=== PATIENT | female | born 1965 | race African-American/Black ===

== ENCOUNTER 2021-03-16 11:16 | Inpatient (IN) | payer OTHER ==
[2021-03-16] MEDS ORDERED: Lidocaine 2% PF 100 mg/5 ml Syringe ONE (12:01)
[2021-03-16] MEDS ORDERED: EPINEPHrine 1 MG/10 ML Abboject SYRINGE ONE (12:01)
[2021-03-16] MEDS ORDERED: Atropine Sulfate 1 mg/10 ml Syringe ONE (12:01)
[2021-03-16] MEDS ORDERED: Dextrose 50% Abboject 50 ML SYRINGE ONE (12:01)
[2021-03-16] MEDS ORDERED: Calcium Chloride 1 GM/10 ML Abboject SYRINGE ONE ×2 (12:01→15:58)
[2021-03-16] MEDS ORDERED: Amiodarone 150 MG/3 ML VIAL ONE (12:01)
[2021-03-16 15:10] LABS: #Monocytes 0.5 10x3/uL (0.0-1.1); #Neutrophils 2.9 10x3/uL (1.5-8.4); %Basophils 0.9 % (0.0-2.0); %Eosinophils 0.2 % (0.0-6.0); %Lymphocytes 20.1 % (18.0-47.0); %Monocytes 10.4 % (0.0-10.0); %Neutrophils 67.9 % (40.0-75.0); Hemoglobin 9.5 g/dL (12.0-15.5); Mean Corpuscular HGB CONC 28.9 g/dL (32.0-36.0); Mean Corpuscular Hemoglobin 23.9 pg (27.0-33.0); Mean Corpuscular Volume 82.7 fl (81.6-98.3); Mean Platelet Volume 9.6 fl (7.4-10.4); Platelet Count 184 10x3/uL (150-450); RBC Distribution Width 19.5 % (11.5-14.5); Red Blood Cell (RBC) Count 3.98 10x6/uL (3.90-5.03); White Blood Cell (WBC) Count 4.3 10x3/uL (3.5-10.5)
[2021-03-16 15:22] LABS: ALT (SGPT) Less than 6 U/L (8-55); AST (SGOT) 14 U/L (5-34); Albumin 3.2 g/dL (3.5-5.0); Alkaline Phosphatase 216 U/L (40-110); Anion Gap 37 mmol/L (10-20); BUN (Urea Nitrogen) 95 mg/dL (9.8-20.1); Bilirubin, Total 0.4 mg/dL (0.2-1.2); Calc. Creatinine Clearance 0 mL/min (70-130); Carbon Dioxide 15 mmol/L (22-29); Chloride 92 mmol/L (98-107); Globulin 5.8 g/dL (2.4-3.5); Glucose 62 mg/dL (70-105); Sodium 135 mmol/L (136-145)
[2021-03-16 15:42] LABS: Anisocytosis MODERATE=16-30 cells (100X) (0-5/hpf); Hypochromia SLIGHT = 6-15 cells (100X) (0-5/hpf); Platelet Morphology Comment Appears Adequate
[2021-03-16] MEDS ORDERED: Albuterol Sulfate 2.5 mg/3 ml Neb ONE (15:58)
[2021-03-16] MEDS ORDERED: Sodium Bicarb 50 MEQ/50 ML Abboject 8.4% SYRINGE ONE (15:59)
[2021-03-16] MEDS ORDERED: Acetaminophen 325 MG TAB PO PRN (17:13)
[2021-03-16] MEDS ORDERED: HYDROcodone/Acetaminophen 5/325 mg Tablet PO PRN (17:13)
[2021-03-16] MEDS ORDERED: Guaifenesin DM 100-10/5 ML UDCUP PO PRN (17:13)
[2021-03-16] MEDS ORDERED: Bisacodyl 5 MG TAB PO PRN (17:13)
[2021-03-16] MEDS ORDERED: Ondansetron PF 4 MG/2 ML Vial IVP PRN (17:13)
[2021-03-16 18:24] LABS: Acetaminophen Less than 6.0 mcg/mL (10.0-30.0); Alcohol Less than 10 mg/dL (Less than 10); Salicylate Less than 8.0 mg/dL (15.0-30.0)
[2021-03-16 18:33] LABS: SARS-CoV-2 NAA Rapid Test Not Detected (NotDetected)
[2021-03-16] MEDS ORDERED: Albumin 25% 25 GM/100 ML BOT IVPB SCH (21:00)
[2021-03-16 22:58] LABS: Anion Gap 19 mmol/L (10-20); BUN (Urea Nitrogen) 19 mg/dL (9.8-20.1); Calc. Creatinine Clearance 0 mL/min (70-130); Calcium 9.6 mg/dL (7.8-10.44); Carbon Dioxide 24 mmol/L (22-29); Chloride 100 mmol/L (98-107); Glucose 69 mg/dL (70-105); Potassium 3.4 mmol/L (3.5-5.1); Sodium 140 mmol/L (136-145)
[2021-03-16 23:40] VITALS: BMI 17.6
[2021-03-17] MEDS ORDERED: Albumin 25% 25 GM/100 ML BOT IVPB SCH (00:15)
[2021-03-17] MEDS ORDERED: Dextrose 50% Abboject 50 ML SYRINGE SLOW IVP SCH (00:15)
[2021-03-17 05:17] LABS: #Monocytes 0.6 10x3/uL (0.0-1.1); #Neutrophils 4.1 10x3/uL (1.5-8.4); %Basophils 0.4 % (0.0-2.0); %Eosinophils 0.2 % (0.0-6.0); %Lymphocytes 16.5 % (18.0-47.0); %Monocytes 10.2 % (0.0-10.0); %Neutrophils 72.2 % (40.0-75.0); Hemoglobin 8.7 g/dL (12.0-15.5); Mean Corpuscular HGB CONC 28.8 g/dL (32.0-36.0); Mean Corpuscular Hemoglobin 23.8 pg (27.0-33.0); Mean Corpuscular Volume 82.5 fl (81.6-98.3); Mean Platelet Volume 10.2 fl (7.4-10.4); Platelet Count 160 10x3/uL (150-450); RBC Distribution Width 19.4 % (11.5-14.5); Red Blood Cell (RBC) Count 3.66 10x6/uL (3.90-5.03); White Blood Cell (WBC) Count 5.7 10x3/uL (3.5-10.5)
[2021-03-17 05:41] LABS: Anion Gap 29 mmol/L (10-20); BUN (Urea Nitrogen) 24 mg/dL (9.8-20.1); Calc. Creatinine Clearance 8 mL/min (70-130); Calcium 11.8 mg/dL (7.8-10.44); Carbon Dioxide 18 mmol/L (22-29); Chloride 97 mmol/L (98-107); Glucose 87 mg/dL (70-105); Potassium 5.1 mmol/L (3.5-5.1); Sodium 139 mmol/L (136-145)
[2021-03-17 07:08] LABS: CKMB 8.2 ng/mL (0-6.6)
[2021-03-17] MEDS ORDERED: Aspirin 81 mg Enteric Coated Tablet PO SCH (09:00)
[2021-03-17] MEDS ORDERED: Enoxaparin Sodium 30 MG/0.3 ML SYRINGE SC SCH (09:00)
[2021-03-17] MEDS ORDERED: Dextrose 5% in Water 1,000 ML IV PRN (11:45)
[2021-03-17] MEDS: Dextrose 50% Abboject 50 ML SYRINGE SLOW IVP PRN ×3 (11:46→13:58)
[2021-03-17] MEDS ORDERED: Dextrose 5 %-0.45 % NaCl 1,000 ML IV SCH (12:00)
[2021-03-17 13:39] VITALS: BP 96/66; TEMP 97.7
[2021-03-17 14:20] LABS: CKMB 15.6 ng/mL (0-6.6)
[2021-03-17 14:24] LABS: Actual Bicarbonate (HCO3a) 11.8 mEq/L (22-28); Base Excess (BEa) -18.4 mEq/L (-2.0 to +3.0); CO2 Tension 49.2 mmHg (35.0-45.0); Calcium, Ionized (arterial) 1.33 mmol/L (1.12-1.30); Carboxyhemoglobin (COHb) 0.2 gm% (0.0-3.0); Hemoglobin (Hb) 7.8 g/dL (12.0-16.0); O2 Tension (PaO2), arterial 26.1 mmHg (80.0-100.0); Potassium - ABG Lab 5.6 mmol/L (3.70-5.30); Puncture Site Other Site
[2021-03-17] MEDS ORDERED: Pantoprazole 40 MG VIAL IVP SCH ×2 (14:30→21:00)
[2021-03-17] MEDS ORDERED: Amiodarone 450 MG in Dextrose 5% in Water 250 ML IVPB SCH (14:30)
[2021-03-17] MEDS ORDERED: Amiodarone 150 MG in Dextrose 5% in Water 100 ML IVPB SCH (14:30)
[2021-03-17] MEDS ORDERED: Vasopressin 20 UNIT, Admixture Fee 1 EACH in Sodium Chloride 0.9% 50 ML IV SCH (14:30)
[2021-03-17 14:31] LABS: ALV-art Gradient 228.275 mmHg (0-20); Actual Bicarbonate (HCO3a) 11.6 mEq/L (22-28); Base Excess (BEa) -19.4 mEq/L (-2.0 to +3.0); CO2 Tension 53.7 mmHg (35.0-45.0); Calcium, Ionized (arterial) 1.62 mmol/L (1.12-1.30); Carboxyhemoglobin (COHb) 1.3 gm% (0.0-3.0); Hemoglobin (Hb) 8.3 g/dL (12.0-16.0); O2 Tension (PaO2), arterial 417.6 mmHg (80.0-100.0); Potassium - ABG Lab 5.2 mmol/L (3.70-5.30); Puncture Site Other Site; pH, Arterial 6.95 (7.35-7.45)
[2021-03-17] MEDS ORDERED: Amiodarone In Dextrose 360 MG in Premix Bag 1 BAG IVPB SCH (14:45)
[2021-03-17] MEDS ORDERED: Sodium Bicarbonate 150 MEQ in Dextrose 5% in Water 1,000 ML IV SCH (14:45)
[2021-03-17 14:54] LABS: #Monocytes 0.5 10x3/uL (0.0-1.1); #Neutrophils 6.8 10x3/uL (1.5-8.4); %Basophils 0.1 % (0.0-2.0); %Lymphocytes 12.6 % (18.0-47.0); %Monocytes 6.1 % (0.0-10.0); %Neutrophils 79.8 % (40.0-75.0); Hemoglobin 5.6 g/dL (12.0-15.5); Mean Corpuscular HGB CONC 21.1 g/dL (32.0-36.0); Mean Corpuscular Hemoglobin 23.8 pg (27.0-33.0); Mean Corpuscular Volume 112.8 fl (81.6-98.3); Mean Platelet Volume 11.9 fl (7.4-10.4); Platelet Count 43 10x3/uL (150-450); RBC Distribution Width 21.8 % (11.5-14.5); Red Blood Cell (RBC) Count 2.35 10x6/uL (3.90-5.03); White Blood Cell (WBC) Count 8.5 10x3/uL (3.5-10.5)
[2021-03-17 15:03] LABS: Magnesium 1.7 mg/dL (1.6-2.6)
[2021-03-17 16:05] LABS: Platelet Morphology Comment Appears Decreased
[2021-03-17 16:06] LABS: Tear Drops SLIGHT = 2-5 cells (100X) (0-1/hpf)
[2021-03-17 16:07] LABS: Anisocytosis MODERATE=16-30 cells (100X) (0-5/hpf); Elliptocytes SLIGHT = 2-5 cells (100X) (0-1/hpf); Hypochromia MODERATE=16-30 cells (100X) (0-5/hpf); Macrocytosis SLIGHT = 6-15 cells (100X) (0-5/hpf); Microcytosis SLIGHT = 6-15 cells (100X) (0-5/hpf)
== END 2021-03-17 18:28 | disposition home or self-care (01) | DRG 640 ==
LOC: CSHERS 11:16 → CSHIMCU 23:30
PROVIDERS: ADMIT Hospitalist; ATTEND Internal Medicine
PROC: 5A1D70Z Performance of Urinary Filtration, Intermittent, Less than 6 Hours Per Day (ICD-10-PCS; 2021-03-16)
PROC: 5A12012 Performance of Cardiac Output, Single, Manual (ICD-10-PCS; principal; 2021-03-17)
PROC: 5A2204Z Restoration of Cardiac Rhythm, Single (ICD-10-PCS; 2021-03-17)
PROC: 0BH17EZ Insertion of Endotracheal Airway into Trachea, Via Natural or Artificial Opening (ICD-10-PCS; 2021-03-17)
PROC: 5A1935Z Respiratory Ventilation, Less than 24 Consecutive Hours (ICD-10-PCS; 2021-03-17)
DX: E87.5 Hyperkalemia (principal); I21.9 Acute myocardial infarction, unspecified; N18.6 End stage renal disease; G93.41 Metabolic encephalopathy; I46.9 Cardiac arrest, cause unspecified; I12.0 Hypertensive chronic kidney disease with stage 5 chronic kidney disease or end stage renal disease; K92.2 Gastrointestinal hemorrhage, unspecified; I47.2 Ventricular tachycardia; K55.9 Vascular disorder of intestine, unspecified; D62 Acute posthemorrhagic anemia; E87.2 Acidosis; Z20.822 Contact with and (suspected) exposure to COVID-19; Z99.2 Dependence on renal dialysis; Z91.15 Patient's noncompliance with renal dialysis; D63.1 Anemia in chronic kidney disease; E11.22 Type 2 diabetes mellitus with diabetic chronic kidney disease; F17.210 Nicotine dependence, cigarettes, uncomplicated; I35.0 Nonrheumatic aortic (valve) stenosis; E83.52 Hypercalcemia; I95.9 Hypotension, unspecified; E11.649 Type 2 diabetes mellitus with hypoglycemia without coma; I51.89 Other ill-defined heart diseases; I48.91 Unspecified atrial fibrillation; Z79.899 Other long term (current) drug therapy; Z88.8 Allergy status to other drugs, medicaments and biological substances
CPT/HCPCS: 36415; 36416; 71045; 80048; 80053; 80307; 82533; 82553; 82805; 83735; 84484; 85025; 90935; 93005; 93010; 93306; 96374; 96375; G0257; J0171; J0282; J0461; J1610; J1650; J2001; J7042; J7611; P9047; U0002